=== PATIENT | male | born 1955 | race Caucasian/White ===

== ENCOUNTER 2024-12-17 16:19 | Emergency (ER) | payer OTHER, SELFPAY ==
[2024-12-17 16:20] VITALS: BP 174/101
[2024-12-17 16:31] VITALS: BP 182/109
[2024-12-17 16:36] LABS: Glucose - Point of Care 117 mg/dl (70-99)
[2024-12-17 16:48] LABS: Hematocrit 38.1 % (39.0-52.0); Hemoglobin 13.1 g/dL (13.0-18.0); Mean Corp Hgb Conc. 34.4 g/dL (33.0-37.0); Mean Corpuscular Volume 92.0 fL (80.0-94.0); Nucleated Red Blood Cells % 0 % (-); Platelet Count 234 10^3/uL (130-400); Red Cell Dist. Width 12.7 % (11.5-14.5)
--- NOTE | 2024-12-17 16:54 | ED.GENMED ---
History of Present Illness
General
Chief Complaint: Change in Mental Status
Source: patient and spouse
Exam Limitations: none
Time Seen by Provider: 12/17/24 16:45
Nursing documentation reviewed up to this point in time: agreed with
History of Present Illness
History of Present Illness:
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
is hot
Today, here thinks is 2023 but otherwise has a nonfocal neurologic exam no slurred speech, no arm or leg weakness blood pressure is modestly elevated does not appear to be overtly intoxicated cooperative no smell of alcohol no headache
Past History
Past History
ED Past Medical History: HTN and Other (Cervical disc disease, lumbar disc disease)
ED Past Surgical History: Orthopedic and Other (Hernia repair)
Social History
Tobacco: Former smoker
Alcohol: Daily
Drug: None
Personal:
Living: with family
Employment: Employed
Review of Systems
Review of Systems
All Other Systems: Not applicable
Constitutional: Denies fever
Respiratory: Reports no symptoms
Cardiac: Reports no symptoms
ABD/GI: Reports no symptoms
: Reports no symptoms
Musculoskeletal: Reports no symptoms
Neurological: Reports other (Confused,); Denies dizzy, headache, weakness or numbness
Endocrine: Reports no symptoms
Hematologic/Lymphatic: Reports no symptoms
Psychiatric: Reports no symptoms
Phy Exam
Physical Exam
Physical Exam:
Physical Exam
General: no apparent distress, not acutely ill
Neck: No jaundice no smell of alcohol no signs of head or neck trauma
Heart: s1/s2 regular rate and rhythm, no murmur. equal radial pulses.
Lungs: no acute respiratory distress. clear bilaterally
Abdomen:
Neuro: alert and oriented. no focal neurological deficits normal [id number] bilaterally no facial palsy speech is clear thinks is 2023 but quickly corrects to 2024
Skin: no rash
Psychiatric: well kept. interactive and cooperative
Extremities: no edema.
Course
Orders/Labs/Results
Orders:
Orders
12/17/24 16:33
Electrocardiogram (*1) Urgent
Reason for Study: Other
Other Reason for Exam: Possible Stroke
Bedside Glucose- Treatment ONCE
Cardiac Monitoring- Treatment ONCE
EKG- Treatment ONCE
IV Insert/Care/Rem.- Treatment PRN
Vital Signs As Directed
Frequency: Other
Weight As Directed
Frequency: Once
Comment: ZERO STRETCHER SCALE FOR ACCURATE WEIGHT
12/17/24 16:39
Complete Blood Count/With Diff Urgent
Comprehensive Metabolic Panel Urgent
PTT Urgent
Prothrombin Time Urgent
Troponin I Urgent
12/17/24 16:45
CT Head W/o Iv Contrast Urgent
Comment:
Reason For Exam: confusion
12/17/24 16:51
0.9% Sodium Chloride 1000 ml [Nss] 1,000 ml IV BOLUS
Abnormal Lab Results
12/17/24 12/17/24
16:34 16:39
RBC 4.14 L 10^6/uL
(4.70-6.10)
Hct 38.1 L %
(39.0-52.0)
MCH 31.6 H pg
(27.0-31.0)
Absolute Monos (auto) 0.7 H 10^3/uL
(0.1-0.6)
Sodium 130 L mmol/L
(135-145)
BUN 35 H mg/dl
(9-20)
Creatinine 1.6 H mg/dL
(0.7-1.3)
Glucose 110 H mg/dl
(70-99)
POC Glucose 117 H mg/dl
(70-99)
12/17/24 16:39
12/17/24 16:39
Vital Signs
Initial and Last Documented VS:
Initial Vital Signs
Temp Pulse Resp BP Pulse Ox
97.8 F 88 18 174/101 100
12/17/24 16:20 12/17/24 16:20 12/17/24 16:20 12/17/24 16:20 12/17/24 16:20
Last Documented Vital Signs
Temp Pulse Resp BP Pulse Ox
97.8 F 72 21 145/87 99
12/17/24 16:20 12/17/24 19:00 12/17/24 19:00 12/17/24 19:38 12/17/24 19:38
MDM/Problems Addressed
Differential Diagnosis Includes:
TGA dehydration heatstroke hypertensive urgency less likely cerebrovascular event or seizure
MDM/Problems Addressed:
Confusion
Chronic conditions affecting care:
Hypertension alcohol
Acute Exacerbation and/or Progression of Chronic Illness:
Hypertension alcohol
*Radiology
Radiology exam reviewed: radiology read reviewed
*Pulse Oximetry
SaO2: 100
Oxygen Mode of Delivery: Room air
Patient hypoxic: no
*EKG
Interpreted by ED Provider?: Yes
Interpretation: normal
Comparison EKG: no comparison EKG present
Heart Rate: 78
Rate: normal
Rhythm: sinus
Ischemia: no ischemia
*Assembly Operator Interpretation
Rate: normal
Interpretation: normal
Heart Rate: 78
Rhythm: sinus
*Critical Care Note
Total Time (30-74mins, 75-104mins- exclusive of procedures): 8
Update Note
Update Note:
715 labs noted blood pressure improved delay getting CAT scan by more critically ill patients with traumatic and/or focal neurologic deficits
8:45 PM patient feeling well clear speech family does state that he has some mild short-term memory loss, blood pressure is normalized he did receive IV fluids here is anxious to go home
Question dehydration, environmental versus TGA
ED Attending Note
-
Portions of this chart may have been created with voice recognition software.� Occasional wrong word or��sound alike� substitutions may have occurred due to the inherent limitations of voice recognition software.
Discharge Plan
Departure
Patient Disposition: Home (Routine Discharge)
Date of Disposition: 12/17/24
Time of Disposition: 20:41
Patient with high blood pressure during this ER visit?: Yes
Condition: Good
Discharge Problem:
Dehydration
Instructions: Altered Mental Status (DC), Dehydration in adults - ED discharge instructions
Prescriptions:
No Action
losartan 50 mg Tablet
50 mg PO DAILY
diltiazem HCl 180 mg Capsule,Extended Release 24 Hr
180 mg PO DAILY
tadalafil 20 mg Tablet
20 mg PO DAILYPRN PRN (Reason: ed)
Referrals:
David Trinidad MD [Family Provider, Internal Medicine] - Follow up in 5-7 days
Activity Restrictions/Additional Instructions:
Drink plenty of fluids, follow-up with your primary care provider
Return to the ER for worsening symptoms
Interventions
Interventions:
*Risk Screen - Suicide Last Done: 12/17/24 16:37
*Neglect/Abuse Screening Last Done: 12/17/24 16:37
ED- Neurological Assessment Last Done: 12/17/24 16:37
Discharge Date and Time
Print Language: GREEK
[2024-12-17] MEDS: NSS 1000 IV (16:55)
[2024-12-17 16:57] LABS: INR 1.00; PT 13.5 Sec (11.4-14.6)
[2024-12-17 16:58] LABS: APTT 29.1 Sec (23.4-35.0)
[2024-12-17 17:00] VITALS: BP 160/93
[2024-12-17 17:01] LABS: ALT (SGPT) 22 U/L (0-50); AST (SGOT) 27 U/L (17-59); Albumin 4.5 g/dl (3.5-5.0); Alkaline Phosphatase 75 U/L (38-126); Blood Urea Nitrogen 35 mg/dl (9-20); Calcium 9.0 mg/dl (8.4-10.2); Carbon Dioxide 23 mmol/L (22-30); Chloride 101 mmol/L (98-107); Glucose 110 mg/dl (70-99); Potassium 4.6 mmol/L (3.5-5.1); Sodium 130 mmol/L (135-145); Total Protein 7.5 g/dl (6.3-8.2); eGFR 46.06
[2024-12-17 17:12] LABS: Troponin I < 0.012 ng/ml
[2024-12-17 19:38] VITALS: BP 145/87
[2024-12-17 21:01] VITALS: BP 156/80
== END 2024-12-17 21:18 | disposition home or self-care (01) ==
LOC: EMR 16:19
PROVIDERS: EMERGENCY PHYSICIAN Emergency Medicine; FAMILY PHYSICIAN Internal Medicine
DX: E86.0 Dehydration (principal); I10 Essential (primary) hypertension; Z87.891 Personal history of nicotine dependence
CPT/HCPCS: 96360; 99284; 70450; 80053; 82962; 84484; 85025; 85610; 85730; 93005